=== PATIENT | male | born 1945 | race Hispanic/Latino ===

== ENCOUNTER → 2017-12-14 | Outpatient (CLI) | payer OTHER ==
[~2017-12-14] MED LIST: ATOR40TA69 PO; FINA5TAB41 PO; LISI10TA7 PO; PARO-37 PO; TAMS0.4C32 PO; [UNRECOGNIZED DRUG - CODE] PO
== END ==
LOC: RAH 09:19
PROVIDERS: ATTEND Urology
DX: N20.0 Calculus of kidney (principal)
CPT/HCPCS: 74018; 76100

== ENCOUNTER → 2017-12-24 | Outpatient (CLI) | payer OTHER ==
[2017-12-24 16:41] LABS: CREATININE 1.3 mg/dL (0.5-1.5)
== END | disposition home or self-care (01) ==
LOC: LAB 16:05
PROVIDERS: ATTEND Urology
DX: N28.1 Cyst of kidney, acquired (principal)
CPT/HCPCS: 36415; 82565; 84520

== ENCOUNTER 2018-01-04 12:23 | Observation (INO) | payer OTHER ==
[~2018-01-04] VITALS: Ht 167.6 cm; Wt 89.3 kg
[~2018-01-04 12:23] MED LIST changes: -IOPAMIDOL-370 100 ML VIAL IV ONE; -IOPAMIDOL-370 75 ML VIAL IV ONE
[2018-01-04] MEDS ORDERED: DiphenhydrAMINE HCL 50 MG/ML VIAL ONE (13:12)
[2018-01-04] MEDS ORDERED: ONDANSETRON HCL MDV 20ML 2 MG/ML VIAL ONE (13:13)
[2018-01-04] MEDS ORDERED: METHYLPREDNISOLONE SOD SUCC 125MG/2ML VIAL ONE (13:13)
[2018-01-04] MEDS ORDERED: NITROGLYCERIN 0.4 MG SL TAB SL ONE (13:13)
[2018-01-04 13:35] LABS: BASOPHILS % (AUTO) 1.5 % (0.0-5.0); CREATININE 1.4 mg/dL (0.5-1.5); EOSINOPHILS % (AUTO) 0.3 % (0.0-8.0); HEMATOCRIT 48.1 % (42-54); LYMPHOCYTES % (AUTO) 2.6 % (21.0-51.0); MEAN CORPUSCULAR HEMOGLOBIN 29.3 pg (27.0-33.0); MEAN CORPUSCULAR HGB CONC 32.4 g/dL (32.0-36.0); MEAN CORPUSCULAR VOLUME 90.4 fL (79-99); MONOCYTES % (AUTO) 1.3 % (3.0-13.0); NEUTROPHILS % (AUTO) 94.3 % (40.0-77.0); PLATELET COUNT (AUTO) 191 K/uL (130-400); POTASSIUM 4.7 mmol/L (3.5-5.1); RED BLOOD CELL COUNT(AUTO) 5.32 MIL/uL (4.50-6.20); RED CELL DISTRIBUTION WIDTH 14.6 % (11.0-15.5)
[2018-01-04] MEDS ORDERED: ASPIRIN 325 MG TABLET ONE (13:36)
[2018-01-04 13:38] LABS: INR 0.97 (0.85-1.15); PARTIAL THROMBOPLASTIN TIME 22.2 SEC (26.3-35.5)
[2018-01-04 13:50] LABS: ALBUMIN 3.8 g/dL (3.5-5.0); BILIRUBIN,TOTAL 0.6 mg/dL (0.2-1.0); CREATINE KINASE MB 0.5 ng/mL (0.5-3.6); TOTAL PROTEIN, SERUM 7.6 g/dL (6.0-8.3)
[2018-01-04] MEDS ORDERED: SODIUM CHLORIDE 0.9% 1000ML 1,000 ML IV ONE (15:45)
[2018-01-04] MEDS ORDERED: LEVOFLOXACIN 750 MG/D5W 150 ML 150 ML ONE (15:45)
[2018-01-04 16:21] LABS: APPEARANCE,URINE Clear (CLEAR); BILIRUBIN,URINE Negative (NEGATIVE); COLOR,URINE Yellow (YELLOW); GLUCOSE, URINE (UA) Negative (NEGATIVE); KETONES,URINE Negative (NEGATIVE); LEUKOCYTE ESTERASE ,URINE Negative (NEGATIVE); NITRATE,URINE Negative (NEGATIVE); OCCULT BLOOD,URINE Negative (NEGATIVE); PROTEIN,URINE Negative (NEGATIVE); UROBILINOGEN,URINE 0.2 mg/dL (0.2-1.0)
[2018-01-04] MEDS ORDERED: NITROGLYCERIN 1GM/1 INCH PACKET TD ONE (18:07)
[2018-01-04 18:43] VITALS: BP 122/66
[2018-01-04] MEDS ORDERED: ONDANSETRON HCL MDV 20ML 2 MG/ML VIAL IVP PRN (19:30)
[2018-01-04] MEDS ORDERED: ACETAMINOPHEN 325 MG TAB PO PRN (19:30)
[2018-01-04] MEDS ORDERED: NITROGLYCERIN 1GM/1 INCH PACKET TD SCH (19:30)
[2018-01-04] MEDS ORDERED: MORPHINE SULFATE 4 MG/1ML SYG IVP PRN ×2 (19:30)
[2018-01-04 19:48] LABS: CREATINE KINASE MB < 0.5 ng/mL (0.5-3.6); CREATINE KINASE, TOTAL 42 U/L (21-232); MYOGLOBIN 54 ng/mL (10-92); TROPONIN I < 0.04 ng/mL (0.00-0.06)
[2018-01-04 20:00] VITALS: BP 118/53
[2018-01-04] MEDS: METOPROLOL TARTRATE 25 MG TAB PO SCH (21:06)
[2018-01-04 23:37] VITALS: BP 95/44
[2018-01-05] MEDS ORDERED: ALPRAZOLAM 0.25 MG TABLET PO PRN (00:30)
[2018-01-05] MEDS ORDERED: POTASSIUM CHLORIDE 20MEQ/100ML 100 ML IV PRN (00:30)
[2018-01-05] MEDS ORDERED: POTASSIUM CHLORIDE 10% ELIXIR 20 MEQ/15 ML UDCUP PO PRN (00:30)
[2018-01-05] MEDS ORDERED: LIDOCAINE HCL-MPF 1% 2ML VIAL IVP PRN (00:30)
[2018-01-05] MEDS ORDERED: POTASSIUM CHLORIDE 20 MEQ ERTAB PO PRN (00:30)
[2018-01-05 02:08] LABS: CREATINE KINASE MB < 0.5 ng/mL (0.5-3.6); CREATINE KINASE, TOTAL 36 U/L (21-232); MYOGLOBIN 73 ng/mL (10-92); TROPONIN I < 0.04 ng/mL (0.00-0.06)
[2018-01-05] MEDS ORDERED: PARO-37 PO (03:39)
[2018-01-05] MEDS ORDERED: ATOR40TA69 PO (03:39)
[2018-01-05] MEDS ORDERED: TAMS0.4C32 PO (03:39)
[2018-01-05] MEDS ORDERED: [UNRECOGNIZED DRUG - CODE] PO (03:39)
[2018-01-05] MEDS ORDERED: FINA5TAB41 PO (03:39)
[2018-01-05] MEDS ORDERED: LISI10TA7 PO (03:39)
[2018-01-05 04:00] VITALS: BP 100/57
[2018-01-05 04:25] LABS: MEAN CORPUSCULAR HEMOGLOBIN 29.6 pg (27.0-33.0); MEAN CORPUSCULAR HGB CONC 33.1 g/dL (32.0-36.0); MEAN CORPUSCULAR VOLUME 89.3 fL (79-99); PLATELET COUNT (AUTO) 208 K/uL (130-400); RED BLOOD CELL COUNT(AUTO) 4.48 MIL/uL (4.50-6.20); RED CELL DISTRIBUTION WIDTH 14.8 % (11.0-15.5); WHITE BLOOD COUNT (AUTO) 21.5 K/uL (4.8-10.8)
[2018-01-05 04:48] LABS: BAND NEUTROPHILS % (MANUAL) 9 % (0-2); LYMPHOCYTES % (MANUAL) 3 % (22-44); REACTIVE LYMPHOCYTES 1 % (0-0); SEGMENTED NEUTROPHILS % 87 % (40-70)
[2018-01-05 04:50] LABS: MAN.DIFF COMMENT-IMPRESSION MANUAL DIFFERENTIAL; POTASSIUM 4.8 mmol/L (3.5-5.1)
[2018-01-05 07:00] VITALS: BP 98/63
[2018-01-05] MEDS ORDERED: LISINOPRIL 10 MG TABLET PO SCH (09:00)
[2018-01-05] MEDS ORDERED: CLORAZEPATE DIPOTASSIUM 3.75 MG TABLET PO SCH (09:00)
[2018-01-05] MEDS ORDERED: NITROGLYCERIN 1GM/1 INCH PACKET TD SCH (09:13)
[2018-01-05] MEDS ORDERED: CEFTRIAXONE 1GM/D5W 50ML 50 ML IV SCH (09:15)
[2018-01-05] MEDS: CEFTRIAXONE SODIUM 1 GM IVP SCH (10:20)
[2018-01-05] MEDS: METOPROLOL TARTRATE 25 MG TAB PO SCH ×2 (10:20→21:00)
[2018-01-05] MEDS: TAMSULOSIN HCL 0.4 MG CAP.ER.24H PO SCH (10:20)
[2018-01-05] MEDS: FINASTERIDE 5 MG TABLET PO SCH (10:20)
[2018-01-05] MEDS: ASPIRIN 325MG EC TAB 325 MG TABLET.DR PO SCH (10:20)
[2018-01-05] MEDS: SODIUM CHLORIDE 0.9% 1000ML 1,000 ML IV SCH (10:21)
[2018-01-05 11:41] VITALS: BP 121/48
[2018-01-05] MEDS: POLYETHYLENE GLYCOL 3350 17 GM POWD.PACK PO SCH (16:32)
[2018-01-05 16:40] VITALS: BP 118/60
[2018-01-05 19:55] VITALS: BP 109/57
[2018-01-05] MEDS ORDERED: ATORVASTATIN CALCIUM 40 MG TABLET PO SCH (21:00)
[2018-01-05] MEDS ORDERED: PAROXETINE HCL 20 MG TABLET PO SCH (21:00)
[2018-01-06 00:13] VITALS: BP 106/62
[2018-01-06] MEDS: SODIUM CHLORIDE 0.9% 1000ML 1,000 ML IV SCH (00:29)
[2018-01-06 03:52] VITALS: BP 118/62
[2018-01-06 04:01] LABS: HEMATOCRIT 38.2 % (42-54); MEAN CORPUSCULAR HEMOGLOBIN 29.9 pg (27.0-33.0); MEAN CORPUSCULAR HGB CONC 33.5 g/dL (32.0-36.0); MEAN CORPUSCULAR VOLUME 89.2 fL (79-99); PLATELET COUNT (AUTO) 203 K/uL (130-400); RED BLOOD CELL COUNT(AUTO) 4.28 MIL/uL (4.50-6.20); RED CELL DISTRIBUTION WIDTH 14.4 % (11.0-15.5); WHITE BLOOD COUNT (AUTO) 16.8 K/uL (4.8-10.8)
[2018-01-06 04:03] LABS: CREATININE 1.4 mg/dL (0.5-1.5); POTASSIUM 4.4 mmol/L (3.5-5.1)
[2018-01-06 05:59] LABS: BAND NEUTROPHILS % (MANUAL) 7 % (0-2); EOSINOPHILS % (MANUAL) 1 % (1-6); LYMPHOCYTES % (MANUAL) 23 % (22-44); MAN.DIFF COMMENT-IMPRESSION MANUAL DIFFERENTIAL; METAMYELOCYTES % 1 % (0-0); MONOCYTES % (MANUAL) 7 % (2-9); SEGMENTED NEUTROPHILS % 61 % (40-70)
[2018-01-06 06:00] LABS: PLATELET MORPHOLOGY COMMENT ADEQUATE
[2018-01-06 08:00] VITALS: BP 109/63
[2018-01-06] MEDS: CEFTRIAXONE SODIUM 1 GM IVP SCH (09:16)
[2018-01-06] MEDS: ASPIRIN 325MG EC TAB 325 MG TABLET.DR PO SCH (09:17)
[2018-01-06] MEDS: TAMSULOSIN HCL 0.4 MG CAP.ER.24H PO SCH (09:17)
[2018-01-06] MEDS: METOPROLOL TARTRATE 25 MG TAB PO SCH (09:17)
[2018-01-06] MEDS: POLYETHYLENE GLYCOL 3350 17 GM POWD.PACK PO SCH (09:17)
[2018-01-06] MEDS: FINASTERIDE 5 MG TABLET PO SCH (09:17)
== END 2018-01-06 10:39 | disposition home or self-care (01) ==
LOC: EDH 12:23 → EDHIP 17:34 → 2AH 18:31
PROVIDERS: ADMIT Internal Medicine; ATTEND Internal Medicine
DX: R07.89 Other chest pain (principal); D72.829 Elevated white blood cell count, unspecified; I10 Essential (primary) hypertension; E78.5 Hyperlipidemia, unspecified; N40.0 Benign prostatic hyperplasia without lower urinary tract symptoms; F32.9 Major depressive disorder, single episode, unspecified; F41.9 Anxiety disorder, unspecified; T38.0X5A Adverse effect of glucocorticoids and synthetic analogues, initial encounter; Y92.89 Other specified places as the place of occurrence of the external cause; Z87.891 Personal history of nicotine dependence; Z87.442 Personal history of urinary calculi
CPT/HCPCS: 36415 ×3; 71045; 74178; 76882; 80048 ×2; 80053; 80061; 81003; 82550 ×3; 82553 ×3; 83874 ×3; 84484 ×3; 85025 ×3; 85610; 85730; 87040 ×2; 87088; 93005 ×3; 96361 ×2; 96374; 99285; A4218 ×2; G0378 ×41; J0696 ×3; J1200; J1956; J2930; J7030 ×3; Q9967 ×2

== ENCOUNTER → 2018-01-04 | Outpatient (CLI) | payer OTHER ==
[~2018-01-04] MED LIST changes: +IOPAMIDOL-370 100 ML VIAL IV ONE; +IOPAMIDOL-370 75 ML VIAL IV ONE
== END | disposition home or self-care (01) ==
LOC: RAH 07:43
PROVIDERS: ATTEND Urology
DX: N28.1 Cyst of kidney, acquired (principal)
CPT/HCPCS: 74178; Q9967 ×2

== ENCOUNTER → 2020-12-24 | Outpatient (CLI) | payer OTHER ==
[~2020-12-24] MED LIST changes: +LISI10TA24 PO; -LISI10TA7 PO
== END | disposition home or self-care (01) ==
LOC: SHCH 12:44
PROVIDERS: ATTEND Internal Medicine Cardiovascular Disease
DX: R06.00 Dyspnea, unspecified (principal)
CPT/HCPCS: 93306; 93356

== ENCOUNTER → 2020-12-27 | Outpatient (CLI) | payer OTHER | END | disposition home or self-care (01) | LOC: SHCH 12:15 | PROVIDERS: ATTEND Internal Medicine Cardiovascular Disease | DX: I73.9 Peripheral vascular disease, unspecified (principal) | CPT/HCPCS: 93922 ==

== ENCOUNTER 2021-01-24 11:12 | Observation (INO) | payer OTHER ==
[2021-01-22 15:27] LABS: BASOPHILS % (AUTO) 0.4 % (0.0-5.0); EOSINOPHILS % (AUTO) 1.3 % (0.0-8.0); LYMPHOCYTES % (AUTO) 24.2 % (21.0-51.0); MEAN CORPUSCULAR HEMOGLOBIN 30.1 pg (27.0-33.0); MEAN CORPUSCULAR HGB CONC 34.4 g/dL (32.0-36.0); MEAN CORPUSCULAR VOLUME 87.4 fL (79-99); MONOCYTES % (AUTO) 7.8 % (3.0-13.0); NEUTROPHILS % (AUTO) 65.8 % (40.0-77.0); PLATELET COUNT (AUTO) 286 K/uL (130-400); RED BLOOD CELL COUNT(AUTO) 4.69 MIL/uL (4.50-6.20); WHITE BLOOD COUNT (AUTO) 11.3 K/uL (4.8-10.8)
[2021-01-22 15:31] LABS: APPEARANCE,URINE Clear (CLEAR); BILIRUBIN,URINE Negative (NEGATIVE); COLOR,URINE Yellow (YELLOW); GLUCOSE, URINE (UA) Negative (NEGATIVE); KETONES,URINE Negative (NEGATIVE); LEUKOCYTE ESTERASE ,URINE Small (NEGATIVE); NITRATE,URINE Negative (NEGATIVE); OCCULT BLOOD,URINE Small (NEGATIVE); PROTEIN,URINE 300 mg/dL (NEGATIVE); UROBILINOGEN,URINE 0.2 mg/dL (0.2-1.0)
[2021-01-22 15:37] LABS: CREATININE 1.1 mg/dL (0.5-1.5); POTASSIUM 3.7 mmol/L (3.5-5.1)
[2021-01-22 15:41] LABS: INR 1.05 (0.85-1.15); PROTHROMBIN TIME 11.4 SEC (9.6-11.6)
[2021-01-22 15:42] LABS: PARTIAL THROMBOPLASTIN TIME 25.4 SEC (26.3-35.5)
[2021-01-22 15:42] LABS: BACTERIA,URINE Rare /HPF (None Seen); RBC,URINE 0-1 /HPF (0-1); WBC,URINE 0-1 /HPF (0-1)
[2021-01-23 08:51] VITALS: BP 188/86
[~2021-01-24] VITALS: Ht 167.6 cm; Wt 83.6 kg
[2021-01-24] VITALS (11 sets, daily range): BP systolic 138–163; BP diastolic 55–77
[2021-01-24] MEDS ORDERED: SODIUM BICARB 50MEQ 50ML VIAL 50 ML ONE (11:35)
[2021-01-24] MEDS ORDERED: IOHEXOL-350 75 ML VIAL IV ONE (11:36)
[2021-01-24] MEDS ORDERED: IOHEXOL 350 MG/ML 100ML INFUS..BTL IV ONE (11:36)
[2021-01-24] MEDS ORDERED: NITROGLYCERIN 2 MG/VIAL VIAL IV ONE (11:36)
[2021-01-24] MEDS ORDERED: NICARDIPINE HCL 25 MG/10 ML ML IV ONE (11:36)
[2021-01-24] MEDS ORDERED: FENTANYL CITRATE PF 50 MCG/1 ML 2ML VIAL ONE ×2 (11:36→13:43)
[2021-01-24] MEDS ORDERED: MIDAZOLAM HCL 1 MG/ML 2ML VIAL ONE (11:36)
[2021-01-24] MEDS ORDERED: BIVALIRUDIN 250 MG/VIAL IV ONE (11:36)
[2021-01-24] MEDS ORDERED: HEPARIN SODIUM 1000UNIT/ML 10ML VIAL ONE (11:36)
[2021-01-24] MEDS ORDERED: LIDOCAINE HCL 2% 20ML ONE (11:36)
[2021-01-24] MEDS ORDERED: NITROGLYCERIN 4.1 GM SPRAY TL ONE (13:27)
[2021-01-24] MEDS ORDERED: ISOSORBIDE MONO 30MG TAB SR PO SCH (14:15)
[2021-01-24] MEDS ORDERED: SODIUM CHLORIDE 0.9% 1000ML 1,000 ML IV SCH (14:15)
[2021-01-24] MEDS ORDERED: SUCRALFATE 1 GM TABLET PO SCH (14:15)
[2021-01-24] MEDS: SUCRALFATE 1 GM TABLET PO SCH ×2 (16:30→21:23)
[2021-01-24] MEDS ORDERED: AEC81 PO (17:51)
[2021-01-24] MEDS ORDERED: AMLO-258 PO (17:51)
[2021-01-24] MEDS ORDERED: PARO-66 PO (17:51)
[2021-01-24] MEDS ORDERED: LORA10TA7 PO (17:51)
[2021-01-24] MEDS: CLORAZEPATE DIPOTASSIUM 3.75 MG PO SCH (21:00)
[2021-01-24] MEDS: PAROXETINE HCL 20 MG TABLET PO SCH (21:20)
[2021-01-24] MEDS: ATORVASTATIN CALCIUM 40 MG TABLET PO SCH (21:23)
[2021-01-25] VITALS (13 sets, daily range): BP systolic 113–145; BP diastolic 48–73
[2021-01-25] MEDS: SUCRALFATE 1 GM TABLET PO SCH ×4 (06:43→21:19)
[2021-01-25] MEDS ORDERED: ASPIRIN 325MG EC TAB 325 MG TABLET.DR PO SCH (08:30)
[2021-01-25] MEDS ORDERED: CLOPIDOGREL BISULFATE 300 MG TAB PO SCH (08:30)
[2021-01-25 08:31] LABS: HEMATOCRIT 38.8 % (42-54); MEAN CORPUSCULAR HEMOGLOBIN 29.2 pg (27.0-33.0); MEAN CORPUSCULAR VOLUME 88.4 fL (79-99); PLATELET COUNT (AUTO) 264 K/uL (130-400); RED BLOOD CELL COUNT(AUTO) 4.39 MIL/uL (4.50-6.20); RED CELL DISTRIBUTION WIDTH 12.9 % (11.0-15.5); WHITE BLOOD COUNT (AUTO) 10.5 K/uL (4.8-10.8)
[2021-01-25] MEDS: TAMSULOSIN HCL 0.4 MG CAP.ER.24H PO SCH (08:46)
[2021-01-25] MEDS: LISINOPRIL 10 MG TABLET PO SCH (08:47)
[2021-01-25] MEDS: ISOSORBIDE MONO 30MG TAB SR PO SCH (08:47)
[2021-01-25] MEDS: FINASTERIDE 5 MG TABLET PO SCH (08:47)
[2021-01-25] MEDS: CLORAZEPATE DIPOTASSIUM 3.75 MG PO SCH ×2 (08:48→21:00)
[2021-01-25 09:09] LABS: INR 1.05 (0.85-1.15); PROTHROMBIN TIME 11.4 SEC (9.6-11.6)
[2021-01-25 09:11] LABS: PARTIAL THROMBOPLASTIN TIME 26.3 SEC (26.3-35.5)
[2021-01-25 09:33] LABS: BASOPHILS % (MANUAL) 2 % (0-2); EOSINOPHILS % (MANUAL) 1 % (1-6); LYMPHOCYTES % (MANUAL) 31 % (22-44); MAN.DIFF COMMENT-IMPRESSION MANUAL DIFFERENTIAL; MONOCYTES % (MANUAL) 5 % (2-9); PLATELET MORPHOLOGY COMMENT ADEQUATE; SEGMENTED NEUTROPHILS % 61 % (40-70)
[2021-01-25] MEDS ORDERED: HEPARIN SODIUM 1000UNIT/ML 10ML VIAL ONE (15:05)
[2021-01-25] MEDS ORDERED: MIDAZOLAM HCL 1 MG/ML 2ML VIAL ONE (15:05)
[2021-01-25] MEDS ORDERED: IOHEXOL-350 75 ML VIAL IV ONE ×2 (15:05→16:54)
[2021-01-25] MEDS ORDERED: SODIUM BICARB 50MEQ 50ML VIAL 50 ML ONE (15:05)
[2021-01-25] MEDS ORDERED: IOHEXOL 350 MG/ML 100ML INFUS..BTL IV ONE (15:05)
[2021-01-25] MEDS ORDERED: FENTANYL CITRATE PF 50 MCG/1 ML 2ML VIAL ONE (15:05)
[2021-01-25] MEDS ORDERED: NITROGLYCERIN 2 MG/VIAL VIAL IV ONE (15:05)
[2021-01-25] MEDS ORDERED: NICARDIPINE HCL 25 MG/10 ML ML IV ONE (15:05)
[2021-01-25] MEDS ORDERED: LIDOCAINE HCL 2% 20ML ONE (15:06)
[2021-01-25] MEDS ORDERED: ADENOSINE 90MG/30ML VIAL IV ONE (16:15)
[2021-01-25] MEDS ORDERED: CLOPIDOGREL BISULFATE 75 MG TAB ONE (17:04)
[2021-01-25] MEDS ORDERED: ASPIRIN 81MG TAB.CHEW ONE (17:04)
[2021-01-25] MEDS ORDERED: CLOP75TA32 PO (17:50)
[2021-01-25] MEDS ORDERED: AEC81 PO (17:50)
[2021-01-25] MEDS: SODIUM CHLORIDE 0.9% 1000ML 1,000 ML IV SCH ×2 (18:08→22:12)
[2021-01-25] MEDS: ATORVASTATIN CALCIUM 40 MG TABLET PO SCH (21:19)
[2021-01-25] MEDS: PAROXETINE HCL 20 MG TABLET PO SCH (21:19)
[2021-01-25] MEDS ORDERED: ACETAMINOPHEN 325 MG TAB ONE (21:42)
[2021-01-25] MEDS ORDERED: ACETAMINOPHEN 325 MG TAB PO PRN (21:45)
[2021-01-26] VITALS: BP 130/52
[2021-01-26 04:00] VITALS: BP 145/65
[2021-01-26] MEDS: SUCRALFATE 1 GM TABLET PO SCH ×2 (06:36→11:30)
[2021-01-26 08:00] VITALS: BP 141/65
[2021-01-26] MEDS: CLORAZEPATE DIPOTASSIUM 3.75 MG PO SCH (08:26)
[2021-01-26] MEDS: LISINOPRIL 10 MG TABLET PO SCH (08:34)
[2021-01-26] MEDS: ISOSORBIDE MONO 30MG TAB SR PO SCH (08:34)
[2021-01-26] MEDS: FINASTERIDE 5 MG TABLET PO SCH (08:35)
[2021-01-26] MEDS: TAMSULOSIN HCL 0.4 MG CAP.ER.24H PO SCH (08:37)
[2021-01-26] MEDS ORDERED: ASPIRIN 81MG TAB.CHEW PO SCH (09:00)
[2021-01-26] MEDS ORDERED: CLOPIDOGREL BISULFATE 75 MG TAB PO SCH (09:00)
== END 2021-01-26 12:14 | disposition home or self-care (01) ==
LOC: DAH 11:12 → DAHIP 11:13 → DAH 11:13 → 4DH 17:55
PROVIDERS: ADMIT Internal Medicine Cardiovascular Disease; ATTEND Internal Medicine Cardiovascular Disease
DX: I21.4 Non-ST elevation (NSTEMI) myocardial infarction (principal); I45.3 Trifascicular block; R94.39 Abnormal result of other cardiovascular function study; I70.213 Atherosclerosis of native arteries of extremities with intermittent claudication, bilateral legs; I25.119 Atherosclerotic heart disease of native coronary artery with unspecified angina pectoris; E78.5 Hyperlipidemia, unspecified; E11.51 Type 2 diabetes mellitus with diabetic peripheral angiopathy without gangrene; I10 Essential (primary) hypertension; M19.90 Unspecified osteoarthritis, unspecified site; G47.33 Obstructive sleep apnea (adult) (pediatric); Z98.61 Coronary angioplasty status; Z79.82 Long term (current) use of aspirin; Z79.899 Other long term (current) drug therapy
CPT/HCPCS: 36415 ×2; 71045; 80048 ×2; 81001; 84484 ×3; 85025 ×2; 85610 ×2; 85730 ×2; 93005 ×3; 93454; 93458; 93571; 93572 ×2; 96360; 96361 ×2; A4215 ×2; A4216; A4221; A4222; A4223 ×3; A4606; A4663; C1725; C1760; C1769 ×3; C1874 ×2; C1887 ×2; C1894 ×7; C9600; C9601; G0378 ×40; J0153; J1644 ×4; J2250 ×2; J3010 ×3; J3490 ×7; J7030; Q9965 ×3; Q9967 ×5; 99156; 99157; J0583

== ENCOUNTER 2021-03-26 05:58 | Day surgery (SDC) | payer OTHER ==
[2021-03-22 16:01] LABS: BASOPHILS % (AUTO) 0.4 % (0.0-5.0); HEMATOCRIT 40.5 % (42-54); LYMPHOCYTES % (AUTO) 23.7 % (21.0-51.0); MEAN CORPUSCULAR HEMOGLOBIN 28.5 pg (27.0-33.0); MEAN CORPUSCULAR HGB CONC 32.8 g/dL (32.0-36.0); MEAN CORPUSCULAR VOLUME 86.9 fL (79-99); MONOCYTES % (AUTO) 8.8 % (3.0-13.0); NEUTROPHILS % (AUTO) 64.4 % (40.0-77.0); PLATELET COUNT (AUTO) 279 K/uL (130-400); RED BLOOD CELL COUNT(AUTO) 4.66 MIL/uL (4.50-6.20); RED CELL DISTRIBUTION WIDTH 12.9 % (11.0-15.5); WHITE BLOOD COUNT (AUTO) 9.7 K/uL (4.8-10.8)
[2021-03-22 16:02] LABS: APPEARANCE,URINE SL CLOUDY (CLEAR); BILIRUBIN,URINE NEGATIVE (NEGATIVE); COLOR,URINE YELLOW (YELLOW); GLUCOSE, URINE (UA) NEGATIVE (NEGATIVE); KETONES,URINE NEGATIVE (NEGATIVE); LEUKOCYTE ESTERASE ,URINE NEGATIVE (NEGATIVE); NITRATE,URINE NEGATIVE (NEGATIVE); OCCULT BLOOD,URINE MODERATE (NEGATIVE); PH,URINE 5.5 (5.0-8.0); PROTEIN,URINE 100 mg/dL (NEGATIVE); UROBILINOGEN,URINE 0.2 mg/dL (0.2-1.0)
[2021-03-22 16:12] LABS: CREATININE 1.1 mg/dL (0.5-1.5); POTASSIUM 4.1 mmol/L (3.5-5.1)
[2021-03-22 16:13] LABS: INR 1.04 (0.85-1.15); PROTHROMBIN TIME 11.3 SEC (9.6-11.6)
[2021-03-22 16:14] LABS: PARTIAL THROMBOPLASTIN TIME 26.5 SEC (26.3-35.5)
[2021-03-22 16:25] LABS: BACTERIA,URINE Rare /HPF (None Seen); SQUAMOUS EPITHELIAL CELL,UR Few /HPF (0-2); WBC,URINE 0-1 /HPF (0-1)
[2021-03-22 16:26] LABS: HYALINE CASTS, URINE 0-1 /LPF (0-1 /LPF)
[2021-03-25 15:48] VITALS: BP 149/72
[2021-03-26] VITALS (12 sets, daily range): BP systolic 141–174; BP diastolic 70–95
[~2021-03-26] VITALS: Ht 167.6 cm; Wt 83.9 kg
[~2021-03-26 05:58] MED LIST changes: +AMLO10TA4 PO; +ASPI-1197 PO; +CLOP75TA14 PO; +FINA5TAB2 PO; -FINA5TAB41 PO; +ISOS30TA11 PO; +LISI-661 PO; -LISI10TA24 PO; +LORA10TA7 PO; +METF-444 PO; +NITR0.4T50 SL; +PANT40TA PO; -PARO-37 PO; +PARO-66 PO; +SUCR1TAB28 PO; -TAMS0.4C32 PO
[2021-03-26] MEDS ORDERED: 0.9%NACL 1000ML 1,000 ML IV ONE (06:15)
[2021-03-26] MEDS ORDERED: SODIUM BICARB 50MEQ 50ML VIAL 50 ML ONE (07:15)
[2021-03-26] MEDS ORDERED: LIDOCAINE HCL 400MG/20ML VIAL ONE ×2 (07:16→09:13)
[2021-03-26] MEDS ORDERED: NITROGLYCERIN 2 MG VIAL IV ONE (07:16)
[2021-03-26] MEDS ORDERED: IODIXANOL 320 MG/ML 100 ML VIAL ONE (07:16)
[2021-03-26] MEDS ORDERED: FENTANYL CITRATE PF 50 MCG/1 ML 2ML VIAL ONE (07:16)
[2021-03-26] MEDS ORDERED: HEPARIN 10,000 UNIT/10ML (1,000 UNIT/ML) VIAL ONE (07:16)
[2021-03-26] MEDS ORDERED: MIDAZOLAM HCL 1 MG/ML 2ML VIAL ONE (07:16)
[2021-03-26] MEDS ORDERED: ASPIRIN 325MG EC TAB PO ONE (10:00)
[2021-03-26] MEDS ORDERED: CLOPIDOGREL 300MG TAB ONE (10:00)
[2021-03-26] MEDS ORDERED: 0.9%NACL 1000ML 1,000 ML IV SCH (10:15)
[2021-03-26] MEDS ORDERED: ONDANSETRON 4MG INJ ONE (11:39)
[2021-03-26] MEDS ORDERED: METOCLOPRAMIDE 10 MG/2 ML VIAL ONE (12:29)
[2021-03-26] MEDS ORDERED: DiphenhydrAMINE HCL 50 MG/ML VIAL ONE (12:30)
[2021-03-26] MEDS ORDERED: DiphenhydrAMINE HCL 50 MG/ML VIAL IVP SCH (12:45)
[2021-03-26] MEDS ORDERED: PANTOPRAZOLE 40 MG/VIAL IVP SCH (12:45)
[2021-03-26] MEDS ORDERED: METOCLOPRAMIDE 10 MG/2 ML VIAL IVP SCH (12:45)
== END 2021-03-26 16:20 | disposition home or self-care (01) ==
LOC: DAH 05:58
PROVIDERS: ATTEND Internal Medicine Cardiovascular Disease
DX: I70.212 Atherosclerosis of native arteries of extremities with intermittent claudication, left leg (principal); I44.2 Atrioventricular block, complete; I25.119 Atherosclerotic heart disease of native coronary artery with unspecified angina pectoris; I10 Essential (primary) hypertension; G47.33 Obstructive sleep apnea (adult) (pediatric); J44.9 Chronic obstructive pulmonary disease, unspecified; M19.90 Unspecified osteoarthritis, unspecified site; E66.3 Overweight; E78.5 Hyperlipidemia, unspecified; Z79.01 Long term (current) use of anticoagulants; Z98.890 Other specified postprocedural states; Z68.29 Body mass index [BMI] 29.0-29.9, adult; Z79.82 Long term (current) use of aspirin; Z98.49 Cataract extraction status, unspecified eye
CPT/HCPCS: 0238T; 36415; 37225; 71045; 75710; 75774; 80048; 81001; 82948 ×2; 85025; 85610; 85730; 93005; A4215; A4216; A4221; A4222; A4223 ×3; A4335; A4606; A4663; C1724; C1760 ×2; C1769 ×2; C1887; C1893; C1894 ×4; C2623 ×2; C9113; J1200; J1644 ×3; J2250; J2405; J2765; J3010; J3490 ×4; J7030 ×2; Q9967; 37220; 96360; 96361; 99156; 99157

== ENCOUNTER 2021-03-29 14:17 | Emergency (ER) | payer OTHER ==
[~2021-03-29] VITALS: Ht 167.6 cm; Wt 86.2 kg
[~2021-03-29 14:17] MED LIST changes: -METF-444 PO
[2021-03-29 14:44] LABS: BASOPHILS % (AUTO) 0.4 % (0.0-5.0); EOSINOPHILS % (AUTO) 1.1 % (0.0-8.0); HEMATOCRIT 37.5 % (42-54); MEAN CORPUSCULAR HEMOGLOBIN 28.7 pg (27.0-33.0); MEAN CORPUSCULAR HGB CONC 32.8 g/dL (32.0-36.0); MEAN CORPUSCULAR VOLUME 87.6 fL (79-99); MONOCYTES % (AUTO) 8.5 % (3.0-13.0); NEUTROPHILS % (AUTO) 72.9 % (40.0-77.0); PLATELET COUNT (AUTO) 257 K/uL (130-400); RED BLOOD CELL COUNT(AUTO) 4.28 MIL/uL (4.50-6.20); RED CELL DISTRIBUTION WIDTH 13.2 % (11.0-15.5)
[2021-03-29] MEDS ORDERED: HYDROCODONE/ACETAMINOPHEN 10/325 MG TAB PO ONE (14:45)
[2021-03-29 15:03] LABS: CREATININE 1.2 mg/dL (0.5-1.5); POTASSIUM 3.9 mmol/L (3.5-5.1)
[2021-03-29 15:08] LABS: ALBUMIN 3.6 g/dL (3.5-5.0); BILIRUBIN,TOTAL 0.6 mg/dL (0.2-1.0); TOTAL PROTEIN, SERUM 7.5 g/dL (6.0-8.3)
[2021-03-29 15:27] VITALS: BP 135/62
[2021-03-29] MEDS ORDERED: IOHEXOL 350 MG/ML 100ML INFUS..BTL IV ONE (15:37)
[2021-03-29] MEDS ORDERED: TRAM50TA4 PO (17:15)
== END 2021-03-29 17:19 | disposition home or self-care (01) ==
LOC: EDH 14:17
DX: S30.0XXA Contusion of lower back and pelvis, initial encounter (principal); I82.523 Chronic embolism and thrombosis of iliac vein, bilateral; I10 Essential (primary) hypertension; E11.9 Type 2 diabetes mellitus without complications; M19.90 Unspecified osteoarthritis, unspecified site; I25.2 Old myocardial infarction; Z95.0 Presence of cardiac pacemaker; Z79.84 Long term (current) use of oral hypoglycemic drugs; Z79.899 Other long term (current) drug therapy; X58.XXXA Exposure to other specified factors, initial encounter; Y93.89 Activity, other specified; Y92.89 Other specified places as the place of occurrence of the external cause; Y99.8 Other external cause status
CPT/HCPCS: 36415; 72191; 80053; 85025; 93970; 99285; Q9967

== ENCOUNTER → 2021-09-24 | Outpatient (CLI) | payer OTHER ==
[~2021-09-24] MED LIST changes: +TRAM50TA4 PO
== END | disposition home or self-care (01) ==
LOC: SHCH 13:06
PROVIDERS: ATTEND Internal Medicine Cardiovascular Disease
DX: R60.9 Edema, unspecified (principal); I73.9 Peripheral vascular disease, unspecified
CPT/HCPCS: 93970

== ENCOUNTER 2022-12-08 19:15 | Emergency (ER) | payer OTHER ==
[~2022-12-08] VITALS: Ht 172.7 cm; Wt 90.7 kg
[~2022-12-08 19:15] MED LIST changes: +CLOP-31 PO; -CLOP75TA14 PO; +PARO-149 PO; -PARO-66 PO
[2022-12-08 22:10] LABS: BASOPHILS % (AUTO) 0.3 % (0.0-5.0); EOSINOPHILS % (AUTO) 0.5 % (0.0-8.0); HEMATOCRIT 45.5 % (42-54); LYMPHOCYTES % (AUTO) 10.3 % (21.0-51.0); MEAN CORPUSCULAR HEMOGLOBIN 29.4 pg (27.0-33.0); MEAN CORPUSCULAR HGB CONC 33.2 g/dL (32.0-36.0); MEAN CORPUSCULAR VOLUME 88.5 fL (79-99); MONOCYTES % (AUTO) 8.4 % (3.0-13.0); NEUTROPHILS % (AUTO) 79.8 % (40.0-77.0); PLATELET COUNT (AUTO) 278 K/uL (130-400); RED BLOOD CELL COUNT(AUTO) 5.14 MIL/uL (4.50-6.20); RED CELL DISTRIBUTION WIDTH 13.2 % (11.0-15.5); WHITE BLOOD COUNT (AUTO) 23.1 K/uL (4.8-10.8)
[2022-12-08 22:25] LABS: CREATININE 1.1 mg/dL (0.5-1.5); POTASSIUM 3.9 mmol/L (3.5-5.1)
[2022-12-08 22:29] LABS: ALBUMIN 4.3 g/dL (3.5-5.0); TOTAL PROTEIN, SERUM 7.7 g/dL (6.0-8.3)
[2022-12-08 23:21] LABS: APPEARANCE,URINE CLEAR (CLEAR); BILIRUBIN,URINE NEGATIVE (NEGATIVE); COLOR,URINE LIGHT-YELLOW (YELLOW); GLUCOSE, URINE (UA) NEGATIVE (NEGATIVE); KETONES,URINE NEGATIVE (NEGATIVE); LEUKOCYTE ESTERASE ,URINE NEGATIVE Leu/uL (NEGATIVE); NITRATE,URINE NEGATIVE (NEGATIVE); OCCULT BLOOD,URINE NEGATIVE (NEGATIVE); PH,URINE 5.5 (5.0-8.0); PROTEIN,URINE 20 mg/dL (NEGATIVE); UROBILINOGEN,URINE 0.2 mg/dL (0.2-1.0)
[2022-12-08 23:27] LABS: MUCUS,URINE RARE LPF (None Seen); RBC,URINE 0-1 /HPF (0-1); SQUAMOUS EPITHELIAL CELL,UR RARE /HPF (0-2)
[2022-12-08] MEDS ORDERED: AZIT250T9 PO (23:50)
[2022-12-08] MEDS ORDERED: BENZ200C53 PO (23:50)
[2022-12-08] MEDS ORDERED: ALBU90AE2 IH (23:50)
[2022-12-09 00:13] VITALS: BP 142/82
== END 2022-12-09 00:13 | disposition home or self-care (01) ==
LOC: EDH 19:15
DX: J06.9 Acute upper respiratory infection, unspecified (principal); R05.9 Cough, unspecified; M19.90 Unspecified osteoarthritis, unspecified site; E11.9 Type 2 diabetes mellitus without complications; I25.2 Old myocardial infarction; I10 Essential (primary) hypertension; Z20.822 Contact with and (suspected) exposure to COVID-19
CPT/HCPCS: 99284; 71045; 87635; 80053; 85025; 87040 ×2; 87077; 87186; 87880; 87804 ×2; 83605; 81001; 36415; C9803

== ENCOUNTER → 2023-02-17 | Outpatient (CLI) | payer OTHER ==
[~2023-02-17] MED LIST changes: +ALBU90AE2 IH; +AZIT250T9 PO; +BENZ200C53 PO
[2023-02-17 12:24] LABS: BASOPHILS % (AUTO) 0.5 % (0.0-5.0); HEMATOCRIT 42.5 % (42-54); LYMPHOCYTES % (AUTO) 24.6 % (21.0-51.0); MEAN CORPUSCULAR HEMOGLOBIN 29.2 pg (27.0-33.0); MEAN CORPUSCULAR HGB CONC 32.2 g/dL (32.0-36.0); MEAN CORPUSCULAR VOLUME 90.6 fL (79-99); MONOCYTES % (AUTO) 9.5 % (3.0-13.0); PLATELET COUNT (AUTO) 296 K/uL (130-400); RED BLOOD CELL COUNT(AUTO) 4.69 MIL/uL (4.50-6.20); RED CELL DISTRIBUTION WIDTH 13.8 % (11.0-15.5); WHITE BLOOD COUNT (AUTO) 10.1 K/uL (4.8-10.8)
[2023-02-17 12:38] LABS: ALBUMIN 4.3 g/dL (3.5-5.0); CREATININE 1.2 mg/dL (0.5-1.5); TOTAL PROTEIN, SERUM 7.6 g/dL (6.0-8.3)
== END | disposition home or self-care (01) ==
LOC: LAB 08:24
PROVIDERS: ATTEND Internal Medicine Cardiovascular Disease
DX: I47.1 Supraventricular tachycardia (principal); I73.9 Peripheral vascular disease, unspecified; Z79.899 Other long term (current) drug therapy
CPT/HCPCS: 36415; 80053; 80061; 85025

== ENCOUNTER → 2023-08-06 | Outpatient (CLI) | payer MEDICARE, OTHER ==
[~2023-08-06] MED LIST changes: +FINA-37 PO; -FINA5TAB2 PO
[2023-08-06 16:19] LABS: BASOPHILS # (AUTO) 0.03 K/uL (0.00-0.20); BASOPHILS % (AUTO) 0.3 % (0.0-5.0); EOSINOPHILS # (AUTO) 0.07 K/uL (0.00-0.70); EOSINOPHILS % (AUTO) 0.7 % (0.0-8.0); HEMATOCRIT 40.1 % (42-54); IMMATURE GRANULOCYTE ABSOLUTE 0.04 K/uL (0-1); LYMPHOCYTES # (AUTO) 2.7 K/uL (1.0-4.8); LYMPHOCYTES % (AUTO) 26.1 % (21.0-51.0); MEAN CORPUSCULAR HEMOGLOBIN 29.7 pg (27.0-33.0); MEAN CORPUSCULAR HGB CONC 32.9 g/dL (32.0-36.0); MEAN CORPUSCULAR VOLUME 90.1 fL (79-99); NEUTROPHILS # (AUTO) 6.4 K/uL (1.8-7.7); NEUTROPHILS % (AUTO) 62.5 % (40.0-77.0); PLATELET COUNT (AUTO) 310 K/uL (130-400); RED BLOOD CELL COUNT(AUTO) 4.45 MIL/uL (4.50-6.20); RED CELL DISTRIBUTION WIDTH 13.2 % (11.0-15.5); WHITE BLOOD COUNT (AUTO) 10.3 K/uL (4.8-10.8)
[2023-08-06 16:42] LABS: B-TYPE NATRIURETIC PEPTIDE 71 pg/mL (0-100)
[2023-08-06 16:44] LABS: CREATININE 1.2 mg/dL (0.5-1.5); POTASSIUM 4.2 mmol/L (3.5-5.1)
== END | disposition home or self-care (01) ==
LOC: LAB 13:27
PROVIDERS: ATTEND Internal Medicine Cardiovascular Disease
DX: I10 Essential (primary) hypertension (principal); I25.10 Atherosclerotic heart disease of native coronary artery without angina pectoris; E78.2 Mixed hyperlipidemia
CPT/HCPCS: 36415; 80048; 80061; 83880; 85025

== ENCOUNTER → 2023-09-23 | Outpatient (CLI) | payer MEDICARE ==
[2023-09-23 12:12] LABS: BASOPHILS # (AUTO) 0.06 K/uL (0.00-0.20); BASOPHILS % (AUTO) 0.6 % (0.0-5.0); EOSINOPHILS # (AUTO) 0.12 K/uL (0.00-0.70); EOSINOPHILS % (AUTO) 1.1 % (0.0-8.0); HEMATOCRIT 43.9 % (42-54); IMMATURE GRANULOCYTE ABSOLUTE 0.06 K/uL (0-1); LYMPHOCYTES # (AUTO) 2.5 K/uL (1.0-4.8); LYMPHOCYTES % (AUTO) 23.8 % (21.0-51.0); MEAN CORPUSCULAR HEMOGLOBIN 29.9 pg (27.0-33.0); MEAN CORPUSCULAR HGB CONC 32.6 g/dL (32.0-36.0); MEAN CORPUSCULAR VOLUME 91.6 fL (79-99); MONOCYTES # (AUTO) 0.8 K/uL (0.1-1.0); MONOCYTES % (AUTO) 7.9 % (3.0-13.0); PLATELET COUNT (AUTO) 331 K/uL (130-400); RED BLOOD CELL COUNT(AUTO) 4.79 MIL/uL (4.50-6.20); RED CELL DISTRIBUTION WIDTH 13.8 % (11.0-15.5); WHITE BLOOD COUNT (AUTO) 10.6 K/uL (4.8-10.8)
[2023-09-23 12:28] LABS: CREATININE 1.1 mg/dL (0.5-1.5)
== END | disposition home or self-care (01) ==
LOC: LAB 08:38
PROVIDERS: ATTEND Internal Medicine Cardiovascular Disease
DX: I73.9 Peripheral vascular disease, unspecified (principal); I10 Essential (primary) hypertension
CPT/HCPCS: 36415; 80048; 83735; 85025

== ENCOUNTER → 2024-01-21 | Outpatient (CLI) | payer MEDICARE | END | disposition home or self-care (01) | LOC: RAH 08:05 | PROVIDERS: ATTEND Urology | DX: N20.0 Calculus of kidney (principal); M47.815 Spondylosis without myelopathy or radiculopathy, thoracolumbar region | CPT/HCPCS: 74018 ==

== ENCOUNTER → 2024-03-24 | Outpatient (CLI) | payer MEDICARE ==
[~2024-03-24] MED LIST changes: -ALBU90AE2 IH; +ALBU90AE3 IH
[2024-03-24 09:15] LABS: BASOPHILS # (AUTO) 0.05 K/uL (0.00-0.20); BASOPHILS % (AUTO) 0.4 % (0.0-5.0); EOSINOPHILS # (AUTO) 0.14 K/uL (0.00-0.70); EOSINOPHILS % (AUTO) 1.1 % (0.0-8.0); HEMATOCRIT 42.8 % (42-54); IMMATURE GRANULOCYTE ABSOLUTE 0.08 K/uL (0-1); LYMPHOCYTES # (AUTO) 2.6 K/uL (1.0-4.8); LYMPHOCYTES % (AUTO) 21.1 % (21.0-51.0); MEAN CORPUSCULAR HEMOGLOBIN 29.4 pg (27.0-33.0); MEAN CORPUSCULAR HGB CONC 33.9 g/dL (32.0-36.0); MEAN CORPUSCULAR VOLUME 86.8 fL (79-99); MONOCYTES % (AUTO) 7.8 % (3.0-13.0); NEUTROPHILS # (AUTO) 8.4 K/uL (1.8-7.7); NEUTROPHILS % (AUTO) 68.9 % (40.0-77.0); PLATELET COUNT (AUTO) 332 K/uL (130-400); RED BLOOD CELL COUNT(AUTO) 4.93 MIL/uL (4.50-6.20); RED CELL DISTRIBUTION WIDTH 13.4 % (11.0-15.5); WHITE BLOOD COUNT (AUTO) 12.3 K/uL (4.8-10.8)
== END | disposition home or self-care (01) ==
LOC: LAB 08:16
PROVIDERS: ATTEND Internal Medicine Cardiovascular Disease
DX: I10 Essential (primary) hypertension (principal); I25.2 Old myocardial infarction; I73.9 Peripheral vascular disease, unspecified
CPT/HCPCS: 36415; 85025